=== PATIENT | male | born 1955 | race Caucasian/White ===

== ENCOUNTER 2019-02-23 11:53 | Outpatient (CLI) | payer OTHER ==
[~2019-02-23] VITALS: Ht 180.3 cm; Wt 97.7 kg
--- NOTE | ~2019-02-23 | HEMODYNAMI ---
PATIENT:EMMA RITCHIE MEDICAL RECORD: [id number] : 51 LOCATION:[facility] ADMISSION DATE: 02/23/19 Generatedon:02/23/201915:12 Patient name: EMMA RITCHIE Patient #: [id number] SSN: DO B: 1955 Date of study: 02/23/2019 Page: Of Hemodynamic Procedure Report Patient Data Patient Demographics Procedure consent was obtained First Name: EMMA Gender: Male Last Name: ERMA : 1955 Patient #: [id number] Age: 63 year(s) Race: Unknown Additional ID: [id number] Contact details Address: [address] [place] [address] State: [place] City: [place] Zip code: [address] Past Medical History Allergies: No known allergies Admission Admission Data Admission Date: 02/23/2019 Admission Time: 11:53 Arrival Date: 02/23/2019 Arrival Time: 0:00 Admit Source: Emergency department Room #: 10 Height (in.): 70.87 BSA: 2.17 (m2) Height (cm.): 180 BMI: 29.94 (kg/m2) Weight (lbs.): 213.85 Weight (kg.): 97 Lab Results Lab Result Date: 02/23/2019 Lab Result Time: 0:00 Biochemistry Name Units Result Min Max BUN mg/dl 6 -*(----)-- 7 18 Creatinine mg/dl 0.8 --(-*--)-- 0.6 1.3 eGFR ml/min 90 --(*---)-- 90 120 NONAFRICAN CBC Name Units Result Min Max Hemoglobin g/dl 12.2 *-(----)-- 13.5 17.5 Procedure Procedure Types Cath Procedure Diagnostic Procedure LHC LHC w/Coronaries PCI Procedure Coronary Stent Coronary Stent Initial Procedure Description Procedure Date Procedure Date: 02/23/2019 Procedure Start Time: 14:51 Procedure End Time: 15:03 Procedure Staff Name Function Rosey CHUNG Scrub Nola Aguilar RN Nurse Darryl Jasmine MD Performing Physician Deborah Tadeo RT Monitor María Ugarte RN Nurse Procedure Data Cath Procedure Fluoroscopy Diagnostic fluoroscopy Total fluoroscopy Time: 2 time: 2 min min Diagnostic fluoroscopy Total fluoroscopy dose: 445 dose: 445 mGy mGy Contrast Material Contrast Material Type Amount (ml) Isovue 300 61 Entry Location Entry Primary Successful Side Size Upsize Upsize Entry Closure Succes sful Closure Location (Fr) 1 (Fr) 2 (Fr) Remarks Device Remarks Femoral Right 5 Fr 6 Fr artery Short Estimated blood loss: 5 ml Diagnostic catheters Device Type Used For End Catheter Placement MULTIPACK Pigtail 5 Fr Procedure catheter MULTIPACK JL 4.0 5Fr Procedure catheter MULTIPACK 3DRC 5Fr Procedure catheter Procedure Complications No complications Procedure Medications Medication Administration Route Dosage 0.9% NaCl I.V. 100 ml/hr Oxygen etCO2 Nasal cannula 2 l/min Lidocaine 2% added to field 20 Heparin Flush Bag added to field 2 bags (1000units/500ml NS) Versed I.V. 2 mg Fentanyl I.V. 100 mcg Heparin Bolus I.V. 4000 units Integrilin (Bolus I.V. 9 ml 2mg/ml) Versed I.V. 1 mg Fentanyl I.V. 50 mcg Hemodynamics Rest HGB: 12.2 (g/dl) Heart Rate: 60 (bpm) Snapshots Pre Cath Intra NCS Post Cath Vital Signs Time Heart Resp SPO2 etCO2 NIBP (mmHg) Rhythm Pain Sedation Rate (ipm) (%) (mmHg) Status Level (bpm) 14:38:56 58 17 100 29.2 156/80(104) NSR 0 (11) 10(A) , No pain 14:43:19 57 25 100 27.7 135/79(105) NSR 0 (11) 10(A) , No pain 14:47:18 79 37 100 26.2 113/91(111) NSR 0 (11) 10(A) , No pain 14:53:19 57 23 100 27 155/86(107) NSR 0 (11) 10(A) , No pain 14:58:28 59 17 99 27 132/73(97) NSR 0 (11) 9(A) , No pain 15:03:31 59 13 99 26.2 122/68(99) NSR 0 (11) 10(A) , No pain Medications Time Medication Route Dose Verified Delivered Reason Notes Effectiveness by by 14:37:14 0.9% NaCl I.V. 100 Darryl María used for ml/hr Kenroy Ugarte transportation consultant 14:37:21 Oxygen etCO2 2 Darryl Beltranyla used for Nasal l/min Kenroy Ugarte procedure cannula RN 14:37:26 Lidocaine 2% added 20ml Darryl Andrews for local to vial Kenroy Jasmine MD anesthetic field 14:37:30 Heparin Flush added 2 Darryl Darryl used for Bag to bags Kenroy Jasmine MD procedure (1000units/500ml field NS) 14:51:37 Versed I.V. 2 mg Darryl Vaca for sedation Kenroy Aguilar RN 14:51:42 Fentanyl I.V. 100 Darryl Vaca for sedation mcg Kenroy Aguilar RN 14:54:15 Versed I.V. 1 mg Darryl Vaca for sedation Kenroy Aguilar RN 14:54:19 Fentanyl I.V. 50 Darryl Vaca for sedation mcg Kenroy Aguilar RN 14:55:10 Heparin Bolus I.V. 4000 Darryl Vaca for verif ied units Kenroy Aguilar RN anticoagulation with dr jasmine 14:56:55 Integrilin I.V. 9 ml Darryl Vaca for waste d 1 (Bolus 2mg/ml) Kenroy Aguilar RN antiplatelet ml of therapy vial Procedure Log Time Note 14:11:50 Informed consent obtained and on chart 14:13:08 Admit Source: Emergency department 14:13:15 Arrival Date: 02/23/2019 12:00:00 AM 14:13:36 Patient Height : 70.87 inches 14:13:40 Patient Weight : 213.85 lbs 14:14:47 Lab Result : eGFR NONAFRICAN 90 ml/min 14:14:47 Lab Result : Hemoglobin 12.2 g/dl 14:14:47 Lab Result : BUN 6 mg/dl 14:14:47 Lab Result : Creatinine 0.8 mg/dl 14:15:34 Procedure Status Urgent Heart Cath (IP). 14:15:39 Nola Aguilar RN sent for patient. Start room use. 14:15:41 Time tracking: Regular hours (M-F 7:00 - 5:00) 14:15:46 Plan of Care:Hemodynamics will remain stable., Cardiac rhythm will remain stable., Comfort level will be maintained., Respiratory function will remain adequate., Patient/ family verbilizes understanding of procedure., Procedure tolerated without complication., Recovers from procedure without complications.. 14:15:51 Patient received from ED to CCL 2 Alert and oriented. Tansferred to table in Supine position. 14:16:05 H&P Date Dictated: 02/23/2019 Emergent; H&P N/A. 14:16:07 Pre-procedure instructions explained to patient. 14:16:10 Family in patients room. 14:16:13 Patient NPO since Midnight. 14:20:44 Patient allergic to No known allergies 14:20:47 Is the patient allergic to Iodine/contrast media? No. 14:21:00 Was the patient premedicated? Yes 14:25:29 Patient diabetic? No. 14:25:31 If diabetic: On Metformin? No 14:25:53 Previous problem with sedation/anesthesia? No ? 14:29:59 Snore? Yes 14:30:00 Sleep apnea? No 14:30:26 Dentures? No ? 14:30:32 Patient pain scale 0/10 ?. 14:30:45 IV patent on arrival in right hand with 0.9% NaCl at [facility]. 14:30:50 Lab results completed and on chart. 14:31:43 Is patient on blood thinner?Yes 14:31:47 ACC The patient was administered the following blood thiners within the last 24 hours: ACCAspirin, ACCPlavix 14:37:14 0.9% NaCl 100 ml/hr I.V. was administered by María Ugarte RN; used for procedure; Verbal order read back and verified. 14:37:21 Oxygen 2 l/min etCO2 Nasal cannula was administered by María Ugarte RN; used for procedure; Verbal order read back and verified. 14:37:22 Pre procedure: right dorsailis pedis pulse 1+ Palpable, but thready & weak; easily obliterated 14:37:26 Lidocaine 2% 20ml vial added to field was administered by Darryl Jasmine MD; for local anesthetic; Verbal order read back and verified. 14:37:30 Heparin Flush Bag (1000units/500ml NS) 2 bags added to field was administered by Darryl Jasmine MD; used for procedure; Verbal order read back and verified. 14:37:32 Risk of Mortality: 2.1 14:37:37 Risk of blood transfusion: 3.6 14:37:38 Vital chart was started 14:37:42 Risk of YAAKOV: 2.2 14:37:46 Right groin area was prepped with chlora-prep and draped in sterile fashion 14:37:47 Sharps counted by scrub and verified by R.N. 14:37:47 Alarms reviewed by R. N. 14:37:50 Physician paged 14:37:54 Baseline sample Acquired. 14:37:57 Rhythm: sinus rhythm 14:37:59 Full Disclosure recording started 14:38:10 Use device set Femoral Dx 14:38:12 Bag Decanter (2002S) opened to sterile field. 14:38:12 ACIST Syringe (98019) opened to sterile field. 14:38:13 Medline Cath Pack ([id number]) opened to sterile field. 14:38:14 ACIST Manifold (39722) opened to sterile field. 14:38:14 ACIST Hand Control (87937) opened to sterile field. 14:38:15 Tegaderm 4 x 4 (1626W) opened to sterile field. 14:38:15 DIAGNOSTIC Multipack 5Fr catheter set (BI5728) opened to sterile field. 14:38:20 SHEATH 5FR [place] (JBK233) opened to sterile field. 14:38:21 EMERALD Guide Wire (442-948) opened to sterile field. 14:50:03 --------ALL STOP TIME OUT------ 14:50:03 Physician arrived 14:50:04 Final Timeout: patient, procedure, and site verified with staff and physician. All members of the team are in agreement. 14:50:11 Right groin site verified by team. 14:50:15 Fire Safety Assessment: A--An alcohol-based skin anteseptic being used preoperatively., C--Open oxygen or nitrous oxide is being used., D--An ESU, laser, or fiber-optic light is being used. 14:50:19 Physical assessment completed. ASA score P 2 - A patient with mild systemic disease as per Darryl Jasmine MD. 14:50:44 1) 90+ Normal kidney functon but urine findings or structural abnormalities or genetic trait point to kidney disease. 14:50:48 Maximum allowable contrast dose (3.7 X eGFR X 0.75)249 ml. 14:50:52 Sedation plan: IV Moderate Sedation Medication:Versed, Fentanyl 14:50:57 Procedure started. 14:51:20 Local anesthetic to right femoral artery with Lidocaine 2% by Darryl Jasmine MD.INITIAL ACCESS ONLY 14:51:29 A 5 Fr sheath was inserted into the Right Femoral artery 14:51:37 Versed 2 mg I.V. was administered by Nola Aguilar RN; for sedation; Verbal order read back and verified. 14:51:42 Fentanyl 100 mcg I.V. was administered by Nola Aguilar RN; for sedation; Verbal order read back and verified. 14:52:14 A MULTIPACK Pigtail 5 Fr catheter was advanced over the wire and used for Procedure. 14:52:18 LV angiography performed. 14:53:19 EF : 40 % 14:53:26 Catheter removed. 14:53:34 A MULTIPACK JL 4.0 5Fr catheter was advanced over the wire and used for Procedure. 14:54:15 Versed 1 mg I.V. was administered by Nola Aguilar RN; for sedation; Verbal order read back and verified. 14:54:15 LCA angiography performed. 14:54:19 Fentanyl 50 mcg I.V. was administered by Nola Aguilar RN; for sedation; Verbal order read back and verified. 14:54:48 GUIDE 6FR XBLAD 3.5 catheter ([id number]) opened to sterile field. 14:54:50 INFLATOR Merit BasixCompak (IX3747) opened to sterile field. 14:55:00 SHEATH 6FR [place] (WPX083) opened to sterile field. 14:55:10 Heparin Bolus 4000 units I.V. was administered by Nola Aguilar RN; for anticoagulation; verified with dr jasmine Verbal order read back and verified. 14:55:12 Catheter removed. 14:55:22 A MULTIPACK 3DRC 5Fr catheter was advanced over the wire and used for Procedure. 14:55:26 RCA angiography performed. 14:55:30 Catheter removed. 14:55:50 CHOICE PT Extra Support 182cm wire ([id number]) opened to sterile field. 14:56:19 Proceeding to intervention. 14:56:27 Sheath upsized to a 6 Fr Short. 14:56:38 6 Fr XBLAD3.5 guide catheter was inserted over the wire 14:56:44 choice pt ex wire advanced. 14:56:55 Integrilin (Bolus 2mg/ml) 9 ml I.V. was administered by Nola Aguilar RN; for antiplatelet therapy; wasted 1 ml of vial Verbal order read back and verified. 14:57:04 Pre PCI Site: [place] mLAD has 95% stenosis. 14:58:24 Place stent Inflation Number: 1 A DOMINICK RX 3.5 x 12 stent ([id number]) was prepped and advanced across the Mid LAD 95. The stent was deployed at 15 CESAR for 0:18 (min:sec) 0. 15:00:01 EXOSEAL 6Fr (EX600) opened to sterile field. 15:00:15 Use device set Femoral Dx 15:00:37 Wire removed. 15:00:38 Guide catheter removed. 15:00:44 ACT drawn and resulted at 293 seconds. (normal therapeutic range 180-240 seconds). 15:00:47 Procedure ended.(Physican Out) 15:00:57 Fluoroscopy time 02.00 minutes. 15:01:02 Fluoroscopy dose: 445 mGy 15:01:02 Flurop Dose total: 445 15:01:09 Dose Area Product 64110 mGy/cm. 15:01:13 Contrast amount:Isovue 300 61ml. 15:01:16 Maximum allowable dose exceeded? No. 15:01:17 Sharps counted by scrub and verified by R.N. 15:01:19 Insertion/operative site no bleeding no hematoma. 15:01:28 Post procedure rhythm: unchanged. 15:01:31 Estimated blood loss: 5 ml 15:01:33 Post procedure instruction explained to patient.Patient verbalizes understanding. 15:01:50 Procedure type changed to Cath procedure, Diagnostic procedure, LHC, C w/Coronaries, PCI procedure, Coronary Stent, Coronary Stent Initial 15:01:52 Procedure and supply charges have been captured, reviewed, submitted and are correct. 15:02:28 Procedure Complication : No complications 15:02:31 Vital chart was stopped 15:02:37 [facility] Findings: MVD- PCI performed (see procedure note) 15::44 See physician's report for complete and final results. 15:02:53 Report given to PCU. 15:02:58 Patient transfered to PCU with Bed. 15:03:00 Full Disclosure recording stopped 15:03:00 Procedure ended. 15:03:06 End room use (Document Last) 15:11:14 ACC-PCI Only Patient was given prescriptions, or instructed by Darryl Jasmine MD to start/continue the following medications upon discharge: Plavix Intervention Summary Intervention Notes Time ActionType Lesion and Equipment Used Action# Pressure Duration Attributes 14:58:24 Place stent Mid LAD DOMINICK RX 3.5 x 1 15 00:18 12 stent ([id number]) Device Usage Item Name Manufacture Quantity Catalog Number Hospital Part Current M inimal Lot# / Charge Number Stock Stock Serial# Code ACIST Syringe Acist 1 62202 370453 998533 676159 2 0 (95806) Medical Systems Inc Bag Decanter Microtek 1 2001S 786975 54755 628985 5 (2001S) Medical Inc. Medline Cath Medline 1 [id number] 911735 62518 622484 5 Pack ([id number]) ACIST Hand Acist 1 40703 416317 336585 869502 5 Control Medical (36653) Systems Inc ACIST Manifold Acist 1 74178 407393 787505 109536 5 (47810) Medical Systems Inc DIAGNOSTIC Cardinal 1 ER3152 988133 59349 175452 3 0 Multipack 5Fr Health catheter set (OQ6401) Tegaderm 4 x 4 3M 1 1626W 891447 020122 644197 5 (1626W) SHEATH 5FR Terumo 1 IXP208 785206 591670 527818 5 [place] (KAB819) EMERALD Guide Cardinal 1 502-455 914383 876466 251890 5 Wire (502-455) Health MULTIPACK Cardinal 1 721903 5 Pigtail 5 Fr Health catheter MULTIPACK JL Cardinal 1 362586 5 4.0 5Fr Health catheter GUIDE 6FR Cardinal 1 [id number] 756620 250454 230973 1 0 XBLAD 3.5 Health catheter ([id number]) INFLATOR Merit Merit 1 KC1209 669369 503760 036959 1 5 [place] (HE3959) SHEATH 6FR Terumo 1 CPE874 349122 611249 181621 4 0 [place] (AVI988) MULTIPACK 3DRC Cardinal 1 033210 5 5Fr catheter Health CHOICE PT [employer] 1 [id number] 573115 440116 305570 5 Extra Support Scientific 182cm wire ([id number]) DOMINICK RX 3.5 x Medtronic 1 [id number] 640455 9731909 057214 5 [id number] 12 stent ([id number]) EXOSEAL 6Fr Cardinal 1 EX600 484560 402043 543543 1 0 (EX600) Health Signature Audit [place] Stage Time Signature Unsigned Intra-Procedure 02/23/2019 Deborah Tadeo 3:03:33 PM RT(R) Intra-Procedure 02/23/2019 Nola Aguilar RN 3:04:24 PM Intra-Procedure 02/23/2019 Darryl Jasmine MD 3:06:15 PM 02/23/2019 3:11:01 PM Intra-Procedure 02/23/2019 Darryl Jasmine 3:12:02 PM Signatures Nurse : Nola Aguilar RN Signature : Date : Time : Performing Physician : Signature : Darryl Jasmine MD Date : Time : Monitor : Deborah Tadeo Signature : RT Date : Time : Nurse : María Ugarte RN Signature : Date : Time : [address] [place] [address]
[2019-02-23] MEDS ORDERED: LISINOPRIL5 MG PO (12:05)
[2019-02-23] MEDS ORDERED: BUPROPION HCL75 MG PO (12:06)
[2019-02-23] MEDS ORDERED: LISINOPRIL-HCT1 EAC4 PO (12:14)
[2019-02-23] MEDS ORDERED: VOLTAREN75 MG PO (12:14)
[2019-02-23 12:39] LABS: BASOPHILS 0.4 % (0-2); EOSINOPHILS 4.5 % (0-7); HEMATOCRIT 34.3 % (42.0-54.0); HEMOGLOBIN 12.2 g/dL (13.5-17.5); LYMPHOCYTES 34.4 % (15-50); MCH 32.3 pg (26.0-34.0); MCHC 35.6 g/dL (31.0-37.0); MCV 90.7 fL (80.0-100.0); MEAN PLATELET VOLUME 10.8 fL (7.4-10.4); MONOCYTES 13.7 % (2-11); PLATELET COUNT 195 10x3/uL (130-400); RBC 3.78 10x6/uL (4.20-6.10); RDW 12.1 % (11.5-14.5); WBC 4.5 10x3/uL (4.8-10.8)
[2019-02-23 12:51] LABS: INR 1.06 (0.85-1.17); PROTIME 13.3 SECONDS (11.6-15.0)
[2019-02-23 12:53] LABS: ALBUMIN 3.4 g/dL (3.4-5.0); ALKALINE PHOSPHATASE 56 U/L (46-116); ALT (SGPT) 15 U/L (10-68); BILIRUBIN - TOTAL 0.54 mg/dL (0.2-1.3); CALC OSMOLALITY 254 mosm/kg (275-300); CALCIUM 8.2 mg/dL (8.5-10.1); CARBON DIOXIDE 28.6 mmol/L (21.0-32.0); CHLORIDE - SERUM 93 mmol/L (98-107); CREATININE - SERUM 0.8 mg/dL (0.6-1.3); GLUCOSE 97 mg/dL (74-106); PROTEIN - SERUM 6.5 g/dL (6.4-8.2); SODIUM 128 mmol/L (136-145); UREA NITROGEN 6 mg/dL (7-18); eGFR NON AFRICAN AMERICAN > 90 mL/min (90-120)
[2019-02-23 13:11] LABS: CKMB 2.7 U/L (0.0-3.6); CREATINE KINASE 144 UL (21-232); MAGNESIUM - SERUM 1.6 mg/dL (1.8-2.4)
[2019-02-23 13:12] LABS: TROPONIN-I 0.269 ng/mL (0.000-0.060)
[2019-02-23 17:00] VITALS: BP 135/68; Ht 180.3 cm; Wt 97.7 kg
--- NOTE | 2019-02-23 17:50 | NUR ---
WITHOUT CHANGES OR DISTRESS NOTED AT THIS TIME. FAMILY AT SIDE.
[2019-02-23 18:20] VITALS: BP 135/68
--- NOTE | 2019-02-23 19:32 | NUR ---
ASSESSMENT COMPLETE, PT A&O. RESPERATIONS EVEN AND UNLABORED ON RA. IV TO RIGHT FOREARM SL, SITE CLEAN AND DRY. DRSG TO RIGHT GROIN C/D/I. NO SWELLING, BLEEDING, OR HEMATOMA NOTED. PEDAL PULSES PRESENT. PT DENIES PAIN OR NEEDS, BED LOW, CL IN REACH.
[2019-02-23 19:47] LABS: CKMB 2.2 U/L (0.0-3.6); CREATINE KINASE 117 UL (21-232)
[2019-02-23 19:49] LABS: TROPONIN-I 0.576 ng/mL (0.000-0.060)
[2019-02-23 20:00] VITALS: BP 121/65
[2019-02-24] VITALS: BP 117/67
[2019-02-24 01:41] LABS: CKMB 2.1 U/L (0.0-3.6); CREATINE KINASE 101 UL (21-232)
[2019-02-24 03:50] LABS: BASOPHILS 0.2 % (0-2); EOSINOPHILS 3.2 % (0-7); HEMATOCRIT 34.2 % (42.0-54.0); LYMPHOCYTES 36.4 % (15-50); MCH 32.1 pg (26.0-34.0); MCHC 35.1 g/dL (31.0-37.0); MCV 91.4 fL (80.0-100.0); MEAN PLATELET VOLUME 11.5 fL (7.4-10.4); MONOCYTES 13.7 % (2-11); NEUTROPHILS 46.5 % (40-80); PLATELET COUNT 215 10x3/uL (130-400); RBC 3.74 10x6/uL (4.20-6.10); RDW 12.3 % (11.5-14.5)
[2019-02-24 04:00] VITALS: BP 103/64
[2019-02-24 04:20] LABS: ALBUMIN 3.3 g/dL (3.4-5.0); ALKALINE PHOSPHATASE 52 U/L (46-116); ALT (SGPT) 14 U/L (10-68); BILIRUBIN - TOTAL 0.49 mg/dL (0.2-1.3); CALC OSMOLALITY 270 mosm/kg (275-300); CALCIUM 8.3 mg/dL (8.5-10.1); CARBON DIOXIDE 27.7 mmol/L (21.0-32.0); CHLORIDE - SERUM 100 mmol/L (98-107); CREATININE - SERUM 0.8 mg/dL (0.6-1.3); GLUCOSE 124 mg/dL (74-106); POTASSIUM - SERUM 3.8 mmol/L (3.5-5.1); PROTEIN - SERUM 6.2 g/dL (6.4-8.2); SODIUM 136 mmol/L (136-145); UREA NITROGEN 7 mg/dL (7-18); eGFR NON AFRICAN AMERICAN > 90 mL/min (90-120)
--- NOTE | 2019-02-24 07:46 | NUR ---
ASSESSMENT DONE. DENIES NEEDS
[2019-02-24 08:58] VITALS: BP 147/84
--- NOTE | 2019-02-24 09:50 | NUR ---
I have reviewed this patient and I concur with the Shift Assessment completed by the Licensed Practical Nurse today this shift.
--- NOTE | 2019-02-24 10:28 | CN ---
PATIENT NAME:EMMA MCMAHAN MEDICAL RECORD: [id number] : 51 LOCATION:[address] ADMIT DATE: ACCOUNT: [id number] CONSULTING PHYSICIAN: ELIZABET MCCAULEY MD REFERRING PHYSICIAN: ELIZABET MCCAULEY MD DATE OF CONSULTATION: 02/23/2019 ADMITTING DIAGNOSES: 1. Unstable angina, class IV. 2. Abnormal ECG. 3. Hypertension. 4. Hyperlipidemia. 5. Family history of coronary artery disease. 6. Smoking. HISTORY OF PRESENT ILLNESS: Mr. Mcmahan has been having 3 days of increasing episodes of chest discomfort. It is a typical anginal discomfort with a dull aching, heavy sensation on the anterior chest, some radiation to his left arm. It has worsened dramatically. He has had episodes at rest today. Hence, he presents to the Emergency Room. He has T-wave inversions throughout the anterolateral on EKG. He has continued to have the episodes of chest discomfort despite medical management here in the Emergency Room. At home, he is on lisinopril, aspirin. He is a continued smoker. PHYSICAL EXAMINATION: CONSTITUTIONAL/GENERAL APPEARANCE: Well nourished, well developed, appears stated age. EYES: Lids and conjunctivae noninjected. No discharge. No pallor. ENT: Lips within normal limit. No cyanosis. No pallor. NECK: Carotid arteries, bilateral normal upstroke. No bruits. No thrills. No jugular venous pressure or distention. CERVICAL LYMPH NODES: Nontender. Nonenlarged. THYROID: Not enlarged. No nodules. CARDIOVASCULAR: Precordial exam, nondisplaced. No heaves or pericardial thrills. Rate and rhythm, regular. Heart sounds, normal S1, normal S2. No S3, no gallop, no rub. Systolic murmur, not heard. Diastolic murmur, not heard. RESPIRATORY: Respiratory effort, unlabored. Normal curvature. No thoracic deformity. No chest wall tenderness. Percussion, resonant. Auscultation, clear. No wheezes, no rales, no rhonchi. ABDOMEN: Soft, nondistended, nontender. No abdominal pain, no vomiting and normal appetite. MUSCULOSKELETAL: No joint tenderness, normal gait, normal tone. SKIN: Warm and dry. REVIEW OF SYSTEMS: The patient reports easy bruising but reports no swollen glands. The patient reports no fever, no night sweats, no significant weight gain, no significant weight loss. No significant exercise tolerance. The patient reports no dry eyes, no irritation, no vision change. Patient reports no difficulty hearing and no ear pain. Patient reports no frequent nose bleeds or nose and sinus problems. Patient reports on arm pain on exertion. No shortness of breath while lying down. No history of heart murmur. Patient reports no cough, no wheezing or coughing up blood. Patient reports no abdominal pain, no vomiting. Normal appetite. No diarrhea and not vomiting blood. No nausea and no constipation. Patient reports no incontinence. No difficulty urinating. No hematuria. No increased frequency. Patient reports CONSULT REPORT [id number] EMMA MCMAHAN no muscle aches. No weakness, no arthralgias, no back pain. No swelling of the extremities. Patient reports no abnormal mole, no jaundice, no rashes. Reports no loss of consciousness. No weakness and no numbness. No seizures, dizziness, or headaches. The patient reports no depression, no sleep disturbance, feeling safe in a relationship and no alcohol abuse. Patient reports on fatigue. Reports no runny nose or sinus pressure. No itching, no hives, and no frequent sneezing. FAMILY HISTORY: Positive for premature coronary artery disease on his father's side. SOCIAL HISTORY: Lives in the [place] area. He is retired. He continues to smoke. OVERALL IMPRESSION: Unstable angina with abnormal ECG, continued pain episodes of rest pain despite aspirin therapy as well as blood pressure controlled with lisinopril. He does not need beta blockade as his heart rate is in the 50s. If he continues to have the pain, we will proceed with coronary angiography. Further care depends upon findings of the angiography. TRANSINT:[id number] Voice Confirmation ID: [id number] DOCUMENT ID: [id number] ELIZABET MCCAULEY MD at 1028 CC: [id number] DICTATION DATE: 02/23/19 1252 PUT IN BEAT ADJUSTER: 02/23/19 1301 [facility] [address] [place] [id number]
--- NOTE | 2019-02-24 10:33 | NUR ---
UPON ADMIT, BEULAH HAS NOT HAD A FLU SHOT THIS YEAR. ORDERED.
[2019-02-24] MEDS ORDERED: PRAVASTATIN SOD10 MG PO (11:15)
[2019-02-24] MEDS ORDERED: PLAVIX75 MG PO (11:16)
[2019-02-24] MEDS ORDERED: BAYER CHEWABLE81 MG PO (11:16)
--- NOTE | 2019-02-24 12:03 | NUR ---
DC GIVEN TO PT
--- NOTE | 2019-02-24 12:11 | NUR ---
DC HOME PER PERSONAL CAR
--- NOTE | 2019-02-24 13:29 | OP ---
PATIENT NAME: EMMA RITCHIE MEDICAL RECORD: [id number] :51 LOCATION:D.ER ADMISSION DATE: SURGEON: ELIZABET MCCAULEY MD DATE OF OPERATION: 02/23/2019 PROCEDURES: 1. PTCA stent LAD. 2. Left heart catheterization. 3. Selective coronary angiography. 4. Left ventriculogram. INDICATION: Non-Q-wave myocardial infarction. DESCRIPTION OF PROCEDURE: After informed consent was obtained and after a detailed description of risks, benefits as well as alternative therapies, the patient elected to proceed with angiogram and heart catheterization. The right femoral area was prepped and draped in normal sterile fashion. Right femoral artery was cannulated via modified Seldinger technique with placement of 6-Bulgarian sheath. All catheters exchanged through this sheath. FINDINGS: The left ventriculogram was performed in standard 30-degree MARKHAM view, reveals anteroapical hypokinesis. Overall ejection fraction 40%. SELECTIVE CORONARY ANGIOGRAPHY: 1. Left main showed no significant angiographic disease. 2. Left anterior descending has 95% stenosis in the mid vessel. 3. Left circumflex has mild irregularities, no flow-limiting stenosis. 4. Right coronary has moderate irregularities, but no flow-limiting stenosis. PTCA STENT OF THE LAD: The sent used is a 3.5 x 12 mm Ronaldo. Result was 0% residual stenosis. OVERALL IMPRESSION: Successful percutaneous transluminal angioplasty stent of the left anterior descending going from 95% initial stenosis to 0% residual. TRANSINT:[id number] Voice Confirmation ID: [id number] DOCUMENT ID: [id number] ELIZABET MCCAULEY MD at 1329 CC: [id number] DICTATION DATE: 02/23/19 1509 STORAGE BRINE WORKER: 02/23/19 2239 DEP CLI 02/24/19 [place] [id number]
--- NOTE | 2019-03-07 11:40 | EC ---
PATIENT:BRIA RITCHIE DATE OF SERVICE: 02/23/19 SEX: M MEDICAL RECORD: [id number] DATE OF : 51 LOCATION:D.ER AGE OF PATIENT: 63 ADMISSION DATE: 02/23/19 REFERRING PHYSICIAN: INTERPRETING PHYSICIAN: ELIZABET JASMINE MD ECHOCARDIOGRAM REPORT ECHO CHARGES 4 ECHO COMPLETE Date: 02/24/19 CLINICAL DIAGNOSIS: GA ECHOCARDIOGRAPHIC MEASUREMENTS (adult normal given) AC root (d.<3.7cm) 4.5 cm LV Septum d (<1.2 cm> 1.1 cm Valve Excursion 1.9 cm LV Septum (systole) 1.6 cm Left Atria (s.<4.0cm> 3.7 cm LVPW d(<1.2cm) 1.4 cm RV (d.<2.3cm) 4.3 cm LVPW (sytole) 1.7 cm LV diastole(<5.6CM) 5.9 cm MV E-F(>70mm/sec) cm LV systole 4.6 cm LVOT Diameter 2.3 cm MV exc.(>10mm) 1.6 cm Est.ejection fraction (50-75%) % DOPPLER: LVIT cm/sec A 70.0 cm/sec E 34.0 cm/sec LA cm/sec RVSP 19 mmHg LVOT 97 cm/sec AOP1/2T m/s Asc. Ao 123 cm/sec RVOT 73 cm/sec RA cm/sec PA 119 cm/sec AV Gradient Peak 6.07 mmHg AV Mean 2.93 mmHg AV Area 2.7 cm MV Gradient Peak 3.36 mmHg MV Mean 1.11 mmHg MV Area cm COMMENTS: Customer Loyalty Representative: Melva LUTHER Area Safety Manager: 1 Dr. Jasmine TAPE# PACS Pericardial Effusion N DATE OF SERVICE: PROCEDURE: Echocardiogram. FINDINGS: 1. Left ventricular chamber size is mildly dilated. Left ventricular systolic function is preserved at 55%. 2. Left atraumatic, right atrium, and right ventricular chamber sizes are within normal limits. 3. Valvular structures have normal structure and motion. ECHOCARDIOGRAM REPORT [id number] BRIA RITCHIE 4. Doppler interrogation reveals mild mitral regurgitation, mild tricuspid regurgitation, no other valvular insufficiency or stenosis. 5. No evidence of pericardial effusion or left ventricular thrombus. TRANSINT:[id number] Voice Confirmation ID: [id number] DOCUMENT ID: [id number] ELIZABET JASMINE MD at 1140 CC: [id number] DICTATION DATE: 02/24/19 1355 SOFTWARE QA SYSTEM SPECIALIST: 02/24/19 1417 DEP CLI 02/24/19 [place] [id number] [place] [id number]
--- NOTE | 2019-03-07 11:40 | DS ---
PATIENT:BRIA MCMAHAN :51 MEDICAL RECORD: [id number] DISCHARGE SUMMARY ADMISSION DATE: 02/23/19 DISCHARGE DATE: 02/24/19 DISCHARGE DIAGNOSES: 1. Non-Q-wave myocardial infarction. 2. Coronary artery disease. 3. Percutaneous transluminal coronary angioplasty stent left anterior descending. 4. Hyperlipidemia. Mr. Mcmahan presents with anginal symptomatology, found to have single vessel disease of the LAD, underwent successful PTCA stent of the LAD, was discharged home on aspirin, Plavix, Pravachol, and no beta charlette was added secondary to bradycardia. He will follow up with [facility] in 1 month. TRANSINT:[id number] Voice Confirmation ID: [id number] DOCUMENT ID: [id number] ELIZABET MCCAULEY MD at 1140 CC: [id number] DICTATION DATE: 02/24/19 1029 EDITOR CONTINUITY AND SCRIPT: 02/25/19 0208 DEP CLI 02/24/19 [id number] [place] [address]
== END 2019-02-24 12:12 | disposition home or self-care (01) ==
LOC: D.ER 11:53 → D.M2 11:53 → EDSTATUS 13:18 → D.M2 16:41 → D.ER 02-24 12:12
PROVIDERS: Family Medicine; ATTEND Internal Medicine Interventional Cardiology
DX: I21.4 Non-ST elevation (NSTEMI) myocardial infarction (principal); I10 Essential (primary) hypertension; I25.10 Atherosclerotic heart disease of native coronary artery without angina pectoris; E78.5 Hyperlipidemia, unspecified
CPT/HCPCS: 93458; C9600

== ENCOUNTER → 2019-10-04 16:50 | Outpatient (CLI) | payer OTHER ==
[~2019-10-04 16:50] MED LIST: BAYER CHEWABLE81 MG PO; BUPROPION HCL75 MG PO; LISINOPRIL-HCT1 EAC4 PO; LISINOPRIL5 MG PO; PLAVIX75 MG PO; PRAVASTATIN SOD10 MG PO; VOLTAREN75 MG PO
== END | disposition home or self-care (01) ==
LOC: D.LABREF 16:50
PROVIDERS: ATTEND Orthopaedic Surgery
DX: M17.12 Unilateral primary osteoarthritis, left knee (principal)

== ENCOUNTER → 2019-10-04 20:23 | Outpatient (CLI) | payer MEDICARE | END | disposition home or self-care (01) | LOC: D.LABREF 20:23 | PROVIDERS: ATTEND Orthopaedic Surgery | DX: M17.12 Unilateral primary osteoarthritis, left knee (principal) ==

== ENCOUNTER 2019-11-14 05:57 | Outpatient (CLI) | payer OTHER ==
[2019-11-08 11:11] LABS: BASOPHILS 0.8 % (0-2); EOSINOPHILS 3.2 % (0-7); HEMATOCRIT 39.9 % (42.0-54.0); HEMOGLOBIN 13.9 g/dL (13.5-17.5); IMMATURE GRANULOCYTES 0.2 % (0-5); LYMPHOCYTES 34.4 % (15-50); MCH 32.3 pg (26.0-34.0); MCHC 34.8 g/dL (31.0-37.0); MCV 92.8 fL (80.0-100.0); MEAN PLATELET VOLUME 10.2 fL (7.4-10.4); MONOCYTES 10.8 % (2-11); NEUTROPHILS 50.6 % (40-80); RDW 12.2 % (11.5-14.5); WBC 5.3 10x3/uL (4.8-10.8)
[2019-11-08 11:20] LABS: CALC OSMOLALITY 262 mosm/kg (275-300); CHLORIDE - SERUM 98 mmol/L (98-107); CREATININE - SERUM 0.8 mg/dL (0.6-1.3); GLUCOSE 94 mg/dL (74-106); POTASSIUM - SERUM 4.4 mmol/L (3.5-5.1); SODIUM 132 mmol/L (136-145); UREA NITROGEN 7 mg/dL (7-18); eGFR NON AFRICAN AMERICAN > 90 mL/min (90-120)
[2019-11-08 11:37] LABS: APTT 31.5 SECONDS (22.8-39.4); INR 0.96 (0.85-1.17); PROTIME 12.8 SECONDS (11.6-15.0)
[2019-11-08 11:50] LABS: PLATELET COUNT 62 10x3/uL (130-400)
[2019-11-08 12:15] LABS: BACTERIA FEW /hpf (NEGATIVE); BILIRUBIN NEGATIVE (NEGATIVE); EPITHELIAL CELLS 0-5 /hpf (0-5); GLUCOSE NEGATIVE (NEGATIVE); KETONE NEGATIVE (NEGATIVE); NITRITE NEGATIVE (NEGATIVE); RED CELLS - URINE NONE SEEN /hpf (0-5); UROBILINOGEN NORMAL (NORMAL); WHITE CELLS - URINE OCC /hpf (NEGATIVE)
[2019-11-08 12:17] LABS: PLATELET ESTIMATE DECREASED
[2019-11-08 12:18] LABS: ROULEAUX OCC
[~2019-11-14] VITALS: Ht 180.3 cm; Wt 97.5 kg
[2019-11-14] MEDS ORDERED: VOLTAREN100 GM TOPICAL (06:18)
[2019-11-14 06:20] VITALS: BP 131/64; Ht 180.3 cm; Wt 97.5 kg
--- NOTE | 2019-11-14 07:30 | NUR ---
PROCEDURE CANCELLED DUE TO LOW PLATELETS PER DR GARCIA. DR GARCIA AT BEDSIDE INFORMING PT OF CANCELLED PROCEDURE.
--- NOTE | 2019-11-14 07:40 | NUR ---
PT DC INSTRUCTIONS REVIEWED AT THIS TIME, PT VERBALIZES UNDERSTANDING. PT IV REMOVED AT THIS TIME, INTACT, NO REDNESS OR SWELLING NOTED AT SITE.
--- NOTE | 2019-11-14 07:46 | NUR ---
PT LEAVING OPS AT THIS TIME, NAD NOTED.
[2019-11-14 08:31] LABS: BASOPHILS 1.4 % (0-2); EOSINOPHILS 2.5 % (0-7); HEMATOCRIT 36.7 % (42.0-54.0); HEMOGLOBIN 12.5 g/dL (13.5-17.5); IMMATURE GRANULOCYTES 0.2 % (0-5); LYMPHOCYTES 32.7 % (15-50); MCH 31.3 pg (26.0-34.0); MCHC 34.1 g/dL (31.0-37.0); MCV 91.8 fL (80.0-100.0); MEAN PLATELET VOLUME 10.5 fL (7.4-10.4); MONOCYTES 15.4 % (2-11); NEUTROPHILS 47.8 % (40-80); RDW 12.1 % (11.5-14.5); WBC 4.4 10x3/uL (4.8-10.8)
[2019-11-14 08:33] LABS: PLATELET COUNT 118 10x3/uL (130-400)
== END 2019-11-14 07:46 | disposition home or self-care (01) ==
LOC: D.SDCHOLD → D.OPS 05:57 → D.SDCHOLD 05:57 → D.OPS 07:46 → D.SDCHOLD 07:46 → EDSTATUS 10:00 → D.SDCHOLD 10:00 → EDBD 10:00
PROVIDERS: ATTEND Orthopaedic Surgery
DX: M17.11 Unilateral primary osteoarthritis, right knee (principal); I25.2 Old myocardial infarction; Z72.0 Tobacco use; Z53.9 Procedure and treatment not carried out, unspecified reason

== ENCOUNTER 2019-12-15 13:36 | Inpatient (IN) | payer OTHER ==
[~2019-12-15] VITALS: Ht 180.3 cm; Wt 95.3 kg
[~2019-12-15 13:36] MED LIST changes: +VOLTAREN100 GM TOPICAL
[2020-01-12] MEDS ORDERED: TOPROL XL25 MG PO (08:17)
[2020-01-12] MEDS ORDERED: PROTONIX40 MG PO (08:18)
[2020-01-12 09:12] LABS: BASOPHILS 0.4 % (0-2); EOSINOPHILS 2.6 % (0-7); HEMATOCRIT 37.5 % (42.0-54.0); HEMOGLOBIN 13.2 g/dL (13.5-17.5); LYMPHOCYTES 37.9 % (15-50); MCH 31.8 pg (26.0-34.0); MCHC 35.2 g/dL (31.0-37.0); MCV 90.4 fL (80.0-100.0); MEAN PLATELET VOLUME 11.3 fL (7.4-10.4); MONOCYTES 9.6 % (2-11); NEUTROPHILS 49.5 % (40-80); RBC 4.15 10x6/uL (4.20-6.10); RDW 12.7 % (11.5-14.5); WBC 5.3 10x3/uL (4.8-10.8)
[2020-01-12 09:14] LABS: PLATELET COUNT 211 10x3/uL (130-400)
[2020-01-12 09:21] LABS: CALC OSMOLALITY 273 mosm/kg (275-300); CARBON DIOXIDE 25.6 mmol/L (21.0-32.0); CHLORIDE - SERUM 103 mmol/L (98-107); CREATININE - SERUM 0.9 mg/dL (0.6-1.3); GLUCOSE 99 mg/dL (74-106); POTASSIUM - SERUM 3.9 mmol/L (3.5-5.1); SODIUM 137 mmol/L (136-145); UREA NITROGEN 12 mg/dL (7-18); eGFR NON AFRICAN AMERICAN 90 mL/min (90-120)
[2020-01-12 09:51] LABS: APTT 34.6 SECONDS (22.8-39.4); PROTIME 13.2 SECONDS (11.6-15.0)
[2020-01-12 10:07] LABS: BILIRUBIN NEGATIVE (NEGATIVE); KETONE NEGATIVE (NEGATIVE); NITRITE NEGATIVE (NEGATIVE); UROBILINOGEN NORMAL (NORMAL)
[2020-01-16] VITALS (11 sets, daily range): BP systolic 103–144; BP diastolic 58–69; BMI 31.4; BMI 29.3
--- NOTE | 2020-01-16 09:26 | NUR ---
THROUGH TRAFFIC KEPT TO A MINIMUM. HIBACLENS AND ALCOHOL USED TO CLEAN BEFORE PREPPING. STERILE GOWNED AND GLOVED TO PREP WITH CHLORAPREP.
--- NOTE | 2020-01-16 19:30 | NUR ---
ALERT RESTING IN BED CPM IN USE, REPORTS BEGANING TO HAVE SOME PAIN TO LEFT KNEE, 2/10, PAIN MEDS GIVEN ORDERED, SEE SHIFT ASSESSEMNT, CALL LIGHT IN REACH, INSTRUCTED TO CALL BEFORE GETTING UP, SR UP X 2 AND BED ALARM ON
[2020-01-17 04:20] VITALS: BP 136/90
[2020-01-17 06:46] LABS: HEMATOCRIT 29.4 % (42.0-54.0); HEMOGLOBIN 9.7 g/dL (13.5-17.5); MCH 30.1 pg (26.0-34.0); MCV 91.3 fL (80.0-100.0); MEAN PLATELET VOLUME 11.6 fL (7.4-10.4); RBC 3.22 10x6/uL (4.20-6.10); RDW 13.1 % (11.5-14.5); WBC 7.9 10x3/uL (4.8-10.8)
[2020-01-17 08:47] VITALS: BP 104/61
--- NOTE | 2020-01-17 09:01 | NUR ---
PT ALERT X 4. BREATH SOUNDS CLEAR BILAT. IV TO RIGHT HAND SALINE LOCKED. DRESSING TO LEFT KNEE CDI. PT REPORTING PAIN OF 5/10, MEDICATED PER ORDERS, WILL CONTINUE TO MONITOR. BED LOW, CALL LIGHT IN REACH. NO OTHER NEEDS AT THIS TIME.
--- NOTE | 2020-01-17 09:55 | OP ---
PATIENT NAME: EMMA SANDOVAL MEDICAL RECORD: [id number] :51 LOCATION:D. D.1208 ADMISSION DATE:01/16/20 SURGEON: CASEY GARCIA DO DATE OF OPERATION: 01/16/2020 PROCEDURE PERFORMED: Left total knee arthroplasty. PREOPERATIVE DIAGNOSIS: Left knee osteoarthritis. POSTOPERATIVE DIAGNOSIS: Left knee osteoarthritis. INDICATIONS: Mr. Sandoval is a 64-year-old male who has had left knee pain and varus deformity for quite some time. He has tried all manner of nonoperative treatment and wanting to get something done surgically. I informed him of the risks including infection, bleeding, damage to nerves and vessels, fracture, need for further surgery, failure of implants, continued pain, arthrofibrosis and even and he signed a consent. SURGEON: Casey Garcia DO DESCRIPTION OF PROCEDURE: The patient was taken to the operative suite, laid in the supine position, given general anesthetic, given 2 grams of Ancef, 80 mg of gentamycin and a gram of TXA and sedated and LMA was placed. He was given a block by anesthesia in preoperative area. The left lower extremity was prepped and draped in sterile fashion. Timeout was performed. Everyone was in agreeance with the correct site, side, patient and the procedure. I then began by making marked out the incision and covered with Ioban. I then made an incision down to the capsule. I used a fresh 10-blade and did a medial parapatellar approach, take out the part of the fat pad and milled the patella down, and then entered the femoral canal and cut the distal femur and then cut the proximal tibia, then sized the femur to be 675. I had removed the meniscus as well. A 675 fit very well. This apparently appeared to size very well. I then put a 4-in-1 cutting block on using an lance wing to ensure there was no notching and there did not appear to be. I then cut the femur through the 4-in-1 cutting block, put on the trial and put in the tibial tray with a poly, foot was then ranged and marked rotation and exposed tibia, reamed and punched it and put extra holes in the tibia for cement. Cement was then mixed, put in the tibia and on the implant, impacted into place, I then impacted the femur on and put a poly in between cleaned out the patella after it had been drilled for the implant as well as the lug holes on the femur at the trialing stage. I removed the excess cement, put into 10% povidine iodine with 500 mL normal saline solution and irrigated out. While irrigating out, I noticed that the femur was notched and got an x-ray showing that it did notch. It was not significant, but there was enough that I had felt be best to put in a stem on the femur. I then waited for the implants and in the meantime reamed up in the femoral canal to an 18, put in a trial and cut the notch out for PS. I then removed that and then trialled with the PS and fit very well. We then pulled the trials out and irrigated while the implant arrived. Once the implant arrived, we assembled it, mixed more cement, put it on the femur and on the implant, impacted into place, removed the excess cement, put a 16-poly and brought the knee to an extension, put more of the 10% povidine iodine and 500 mL normal saline solution in the knee, irrigated that out for 3 minutes and the cement had dried. I then put in a 16 posterior stabilized poly. It fit very well, good medial and lateral stability in flexion and extension, locked it into place with the locking mechanism. I then irrigated the knee one more time put OPERATIVE REPORT [id number] EMMA SANDOVAL in the Tim, vancomycin and tobramycin powder. I then closed the capsule with #1 Vicryl in [id number] fashion myself and Sanchez Quezada, certified surgical director of first impressions. Sanchez Quezada then closed the skin with 2-0 Vicryl in inverted interrupted fashion and put a ZipLine on the knee. We then dressed with Adaptic, 4 x 4s, ABD, Webril, Lev wrap and TIARRA stocking up to the knee. He was then awakened and taken to recovery in stable condition. Blood loss was approximately 200 mL. COMPLICATIONS: Notch femur. TRANSINT:[id number] Voice Confirmation ID: [id number] DOCUMENT ID: [id number] CASEY GARCIA DO at 0955 CC: [id number] DICTATION DATE: 01/16/2081 MOTOR INSTALLER: 01/16/20 1510 ADM IN [facility] [address] [place] [address]
[2020-01-17 13:54] VITALS: Ht 180.3 cm; Wt 95.3 kg
--- NOTE | 2020-01-17 16:35 | NUR ---
Rehab Note- Acute Inpatient Rehab prescreen order received. The patient has [employer] insurance and will require a PreAuth. He has a pending OT Eval. Will begin PreAuth process. Will follow at this time. Thank you for this referral! Sadie Goff RN Clincial Liaison, [facility] Rehab
--- NOTE | 2020-01-17 16:50 | MORECARE ---
CASE MANAGEMENT DISCHARGE SUMMARY PATIENT: EMMA LIGHT UNIT: [id number] ADM DATE: 01/16/20 AGE: 64 : 51 SEX: M ROOM/BED: D.1208 AUTHOR: ABHISHEK BETANCOURT PHYSICIAN: REFERRING PHYSICIAN: JOSE GARCIA DO DATE OF SERVICE: 01/17/20 Discharge Plan Patient Name: EMMA LIGHT Facility: [facility]:[place] : 1955 Planned Disposition: Anticipated Discharge Date: Discharge Date: Expected LOS: Initial Reviewer: [email or web address] Initial Review Date: 01/17/2020 Generated: 01/17/20 5:49 pm Patient Name: EMMA LIGHT Page [id number] at 1650 All edits/amendments must be made on the electronic document DICTATION DATE: 01/17/201648 MAT MACHINE OPERATOR: LM 01/17/201648 RPT#: [id number] DC DATE: STATUS: ADM IN [facility] [address] [place] [address] END OF REPORT
[2020-01-17 20:00] VITALS: BP 159/55
--- NOTE | 2020-01-17 20:00 | NUR ---
RESTING IN BED, HAS REMOVED LEG FROM CPM STATES WILL TRY AGAIN IN 30 MIN HURTING TO BAD RIGHT NOW, SEE SHIFT ASSESSMENT, CALL LIGHT IN REACH
--- NOTE | 2020-01-17 21:30 | NUR ---
HAS AGAIN REMOVED LEG FROM CPM, STATES KNEE HURTING, MEDICATED FOR PAIN CPM REMOVED FROM BED INSTRUCTED TO REST WILL TRY AGAIN IN MORNING
[2020-01-18 04:30] VITALS: BP 165/79
--- NOTE | 2020-01-18 05:00 | NUR ---
UP WITH WALKER ASSISTED TO BATHROOM, THEN TO AMBULATE IN HALLWAY AND BACK TO ROOM SITTING UP IN CHAIR
[2020-01-18 05:20] LABS: HEMATOCRIT 29.7 % (42.0-54.0); HEMOGLOBIN 10.3 g/dL (13.5-17.5); MCHC 34.7 g/dL (31.0-37.0); MCV 89.5 fL (80.0-100.0); MEAN PLATELET VOLUME 11.2 fL (7.4-10.4); RBC 3.32 10x6/uL (4.20-6.10); RDW 12.9 % (11.5-14.5); WBC 9.3 10x3/uL (4.8-10.8)
--- NOTE | 2020-01-18 07:27 | NUR ---
PT AWAKE AND ALERT. WANTING TO WALK. AMBULATED WITH WALKER APPROX. 60 FEET WITH STANDBY ASSISTANCE. REMINDED PT TO PLACE WALKER IN FRONT OF HIM AND NOT ROLL IT WITH WALKING. LEFT KNEE DRESSING CLEAN DRY AND INTACT. TIARRA HOSE ON BILAT. SCDS OFF AT MOMENT. CALL LIGHT IN REACH
[2020-01-18 07:57] VITALS: BP 122/56
[2020-01-18] MEDS ORDERED: KEFLEX500 MG PO (08:38)
[2020-01-18] MEDS ORDERED: ELIQUIS2.5 MG PO (08:38)
[2020-01-18] MEDS ORDERED: oxyCODONE IR PO (08:38)
--- NOTE | 2020-01-18 09:37 | NUR ---
HAS AMBULATED WITH THERAPY AND IS LYING QUIETLY IN BED. REFUSING A PAIN PILL AT PRESENT. CALL LIGHT IN REACH
[2020-01-18 11:54] VITALS: BP 147/69
--- NOTE | 2020-01-18 12:45 | NUR ---
dressing changed to left knee. incision clean dry and intact with no reddness noted. zipper dressing remains in place. dressing applied with sharon wrap. saline lock removed. awaitning discharge papers.
--- NOTE | 2020-01-18 13:48 | NUR ---
discharge instructions reviewed with patient and family. questions answered. to front door per wheelchair with belongings.
--- NOTE | 2020-01-18 14:10 | MORECARE ---
CASE MANAGEMENT DISCHARGE SUMMARY PATIENT: EMMA LIGHT UNIT: [id number] ADM DATE: 01/16/20 AGE: 64 : 53 SEX: M ROOM/BED: D.1208 AUTHOR: ABHISHEK BETANCOURT PHYSICIAN: REFERRING PHYSICIAN: JOSE GARCIA DO DATE OF SERVICE: 01/18/20 Discharge Plan Patient Name: EMMA LIGHT Facility: [facility]:[place] : 1955 Planned Disposition: Home Anticipated Discharge Date: 01/18/20 Discharge Date: 01/18/2020 Expected LOS: 2 Initial Reviewer: [email or web address] Initial Review Date: 01/17/2020 Generated: 01/18/20 3:10 pm Last DP export: 01/17/20 3:50 pm Patient Name: EMMA LIGHT Page [id number] at 1410 All edits/amendments must be made on the electronic document DICTATION DATE: 01/18/20 1410 HIGH SCHOOL COMBINATION TEACHER: LM 01/18/20 1410 RPT#: [id number] DC DATE:01/18/20 STATUS: DIS IN [facility] [address] [place] [address] END OF REPORT
--- NOTE | 2020-01-18 14:19 | MORECARE ---
CASE MANAGEMENT DISCHARGE SUMMARY PATIENT: EMMA LIGHT UNIT: [id number] ADM DATE: 01/16/20 AGE: 64 : 53 SEX: M ROOM/BED: D.1208 AUTHOR: ABHISHEK BETANCOURT PHYSICIAN: REFERRING PHYSICIAN: JOSE GARCIA DO DATE OF SERVICE: 01/18/20 Discharge Plan Patient Name: EMMA LIGHT [facility] [facility] 1955 Planned Disposition: Home Anticipated Discharge Date: 01/18/20 Discharge Date: 01/18/2020 Expected LOS: 2 Initial Reviewer: [email or web address] Initial Review Date: 01/17/2020 Generated: 01/18/20 3:19 pm DCPIA - Discharge Planning Initial Assessment Updated by [email or web address]: Mónica Barr on 01/18/20 2:16 pm * Is the patient Alert and Oriented? Yes * PCP ANDREAS CADET APN * Pharmacy [facility] * Preadmission Environment Home with Family * ADLs Partial Dependent * Partial ADLs (Assistance needed) Transfers * Equipment Hospital Bed * Other Equipment HOSPITAL BED, WALKER, CANE, CPM, COOLING MACHINE * List name and contact numbers for known caregivers / representatives who currently or will assist patient after discharge: KRISTOFER LIGHT- [facility]- [phone] * Verbal permission to speak to the caregivers and representatives has been obtained from the patient. No * Community resources currently utilized None * Please name any agencies selected above. N/A * Additional services required to return to the preadmission environment? No * Can the patient safely return to the preadmission environment? Yes Last DP export: 01/18/20 1:10 p Patient Name: EMMA LIGHT Page 18789 at 1419 All edits/amendments must be made on the electronic document DICTATION DATE: 01/18/201418 EYEWEAR MANUFACTURING SUPERVISOR: LM 01/18/20 141 RPT#: [id number] DC DATE:01/18/20 STATUS: DIS IN [place] [place] [address] END OF REPORT
--- NOTE | 2020-01-18 14:29 | MORECARE ---
CASE MANAGEMENT DISCHARGE SUMMARY PATIENT: EMMA LIGHT UNIT: [id number] ADM DATE: 01/16/20 AGE: 64 : 53 SEX: M ROOM/BED: D.1208 AUTHOR: ASIA,DOC PHYSICIAN: REFERRING PHYSICIAN: JOSE GARCIA DO DATE OF SERVICE: 01/18/20 Discharge Plan Patient Name: EMMA LIGHT Facility: [facility]:[place] : 1955 Planned Disposition: Home Anticipated Discharge Date: 01/18/20 Discharge Date: 01/18/2020 Expected LOS: 2 Initial Reviewer: [email or web address] Initial Review Date: 01/17/2020 Generated: 01/18/20 3:28 pm Comments DCP- Discharge Planning Updated by [email or web address]: Mónica Barr on 01/18/20 1:[address] PATIENT WAS ADAMENT ABOUT BEING DISCHARGED TO HOME TODAY. HIS SON WAS AT THE BEDSIDE. HE DISCUSSED WITH DR GARCIA. CM SPOKE W/ PATIENT BRIEFLY HE WAS ANXIOUS TO LEAVE. HIS AND SON WILL BE PROVIDING TRANSPORTATION. HE HAS REQUESTED [facility] OUTPATIENT PHYSICAL THERAPY. HE STATES HE HAS ALL OF THE NECESSARY DME AT HOME IE.. HOSPITAL BED, WHEELCHAIR, WALKER, CANE , CPM. TC TO OUTPATIENT PT SERVICES. CM SPOKE W/ DILEEP. SHE ARRANGED FOR AN APPT AT 1300 ON 01/22/2020. PATIENT PROVIDED WITH COPY OF REFERRAL. WAS AT THE BEDSIDE TAKING OUT HIS BELONGINGS. SON WAS BRINGING THE CAR TO THE FRONT. PATIENT NO HAS QUESTIONS. GETTING UP TO THE WHEELCHAIR W/ CANE, WHEELCHAIR AND THERMAL SPRAY OPERATOR. PATIENT DOES NOT WISH ANY ADDITIONAL QUESTIONS. DCPIA - Discharge Planning Initial Assessment Updated by [id number]: Móinca Barr on 01/18/20 2:16 pm * Is the patient Alert and Oriented? Yes * PCP ANDREAS CADET APN * Pharmacy [facility] [address] * Preadmission Environment Home with Family * ADLs Partial Dependent * Partial ADLs (Assistance needed) Transfers * Equipment Hospital Bed * Other Equipment HOSPITAL BED, WALKER, CANE, CPM, COOLING MACHINE * List name and contact numbers for known caregivers / representatives who currently or will assist patient after discharge: KRISTOFER LIGHT- [facility]- [phone] * Verbal permission to speak to the caregivers and representatives has been obtained from the patient. No * Community resources currently utilized None * Please name any agencies selected above. N/A * Additional services required to return to the preadmission environment? No * Can the patient safely return to the preadmission environment? Yes Last DP export: 01/18/20 1:19 p Patient Name: EMMA LIGHT Page [id number] at 1429 All edits/amendments must be made on the electronic document DICTATION DATE: 01/18/201427 KILN REMOVER: LM 01/18/20 142 RPT#: [id number] DC DATE:01/18/20 STATUS: DIS IN [facility] [address] [place] [address] END OF REPORT
--- NOTE | 2020-01-18 14:38 | MORECARE ---
CASE MANAGEMENT DISCHARGE SUMMARY PATIENT: EMMA LIGHT UNIT: [id number] ADM DATE: 01/16/20 AGE: 64 : 51 SEX: M ROOM/BED: D.1208 AUTHOR: ASIA,DOC PHYSICIAN: REFERRING PHYSICIAN: JOSE GARCIA DO DATE OF SERVICE: 01/18/20 Discharge Plan Patient Name: EMMA LIGHT Facility: [facility]:[place] : 1955 Planned Disposition: Home Anticipated Discharge Date: 01/18/20 Discharge Date: 01/18/2020 Expected LOS: 2 Initial Reviewer: [email or web address] Initial Review Date: 01/17/2020 Generated: 01/18/20 3:37 pm Comments DCP- Discharge Planning Updated by [email or web address]: Mónica Barr on 01/18/20 1:[address] PATIENT WAS ADAMENT ABOUT BEING DISCHARGED TO HOME TODAY. HIS SON WAS AT THE BEDSIDE. HE DISCUSSED WITH DR GARCIA. CM SPOKE W/ PATIENT BRIEFLY HE WAS ANXIOUS TO LEAVE. HIS AND SON WILL BE PROVIDING TRANSPORTATION. HE HAS REQUESTED [facility] OUTPATIENT PHYSICAL THERAPY. HE STATES HE HAS ALL OF THE NECESSARY DME AT HOME IE.. HOSPITAL BED, WHEELCHAIR, WALKER, CANE , CPM. TC TO OUTPATIENT PT SERVICES. CM SPOKE W/ DILEEP. SHE ARRANGED FOR AN APPT AT 1300 ON 01/22/2020. PATIENT PROVIDED WITH COPY OF REFERRAL. WAS AT THE BEDSIDE TAKING OUT HIS BELONGINGS. SON WAS BRINGING THE CAR TO THE FRONT. PATIENT NO HAS QUESTIONS. GETTING UP TO THE WHEELCHAIR W/ CANE, WHEELCHAIR AND DERRICK BUILDER. PATIENT DOES NOT WISH ANY ADDITIONAL QUESTIONS. DCPIA - Discharge Planning Initial Assessment Updated by [id number]: Mónica Barr on 01/18/20 2:16 pm * Is the patient Alert and Oriented? Yes * PCP ANDREAS CADET APN * Pharmacy [facility] [address] * Preadmission Environment Home with Family * ADLs Partial Dependent * Partial ADLs (Assistance needed) Transfers * Equipment Hospital Bed * Other Equipment HOSPITAL BED, WALKER, CANE, CPM, COOLING MACHINE * List name and contact numbers for known caregivers / representatives who currently or will assist patient after discharge: KRISTOFER LIGHT- [facility]- [phone] * Verbal permission to speak to the caregivers and representatives has been obtained from the patient. No * Community resources currently utilized None * Please name any agencies selected above. N/A * Additional services required to return to the preadmission environment? No * Can the patient safely return to the preadmission environment? Yes Last DP export: 01/18/20 1:19 p Patient Name: EMMA LIGHT Page [id number] at 1438 All edits/amendments must be made on the electronic document DICTATION DATE: 01/18/207 FULL STACK PYTHON DEVELOPER: LM 01/18/20 1437 RPT#: [id number] DC DATE:01/18/20 STATUS: DIS IN [facility] [address] [place] [address] END OF REPORT
== END 2020-01-18 13:50 | disposition home or self-care (01) | DRG 470 ==
LOC: D.M3 01-16 05:15 → D.SDCHOLD 01-16 05:15 → D.M3 01-16 10:37
PROVIDERS: ADMIT Orthopaedic Surgery; ATTEND Orthopaedic Surgery
PROC: 0SRD0J9 Replacement of Left Knee Joint with Synthetic Substitute, Cemented, Open Approach (ICD-10-PCS; principal; 2020-01-16 07:00)
DX: M17.12 Unilateral primary osteoarthritis, left knee (principal); I25.10 Atherosclerotic heart disease of native coronary artery without angina pectoris; I10 Essential (primary) hypertension; Z72.0 Tobacco use

== ENCOUNTER 2020-01-24 13:55 | Observation (INO) | payer OTHER ==
[~2020-01-24] VITALS: Ht 180.3 cm; Wt 95.5 kg
--- NOTE | ~2020-01-24 | OP ---
PATIENT NAME: EMMA LIGHT MEDICAL RECORD: [id number] :51 LOCATION:[facility] ADMISSION DATE:01/24/20 SURGEON: DG ALVAREZ MD DATE OF OPERATION: 01/25/2020 PROCEDURE: Left heart catheterization, selective coronary angiography, right femoral artery approach. CATHETERS: A 5-Wolof sheath, 5/4 left and right Darius, 5/4 pig. Procedure was well tolerated. The patient was returned to the chi. Sheath removed. ExoSeal device placed. FINDINGS: Left ventriculography in 30-degree MARKHAM view: Normal wall motion and normal systolic function. CORONARY ANATOMY: LEFT MAIN: Left main is free of disease. LAD: An area of previous stent is widely patent. Otherwise luminal irregularities only. CIRCUMFLEX: Luminal irregularities only. RIGHT CORONARY ARTERY: Dominant artery. No flow obstructive disease. IMPRESSION: Probable demand ischemia with combination of anemia postop, etc. LV function remains normal. Continue therapy from cardiovascular standpoint. TRANSINT:[id number] Voice Confirmation ID: [id number] DOCUMENT ID: [id number] DG ALVAREZ MD CC: [id number] DICTATION DATE: 01/25/201726 MAIL OFFICER: 01/26/20 0017 DIS IN 01/25/20 [facility] [id number]
--- NOTE | ~2020-01-24 | HEMODYNAMI ---
PATIENT:EMMA LIGHT MEDICAL RECORD: [id number] : 51 LOCATION:[facility] JanethE12[facility]# [id number] ADMISSION DATE: 01/24/20 Generatedon:01/25/202017:19 Patient name: EMMA LIGHT Patient #: [id number] SSN: [id number] : 1955 Date of study: 01/25/2020 Page: Of Hemodynamic Procedure Report Patient Data Patient Demographics Procedure consent was obtained First Name: EMMA Gender: Male Last Name: NADEGE : 1955 Middle Initial: FLORENCIO Age: 64 year(s) Patient #: [id number] Race: SSN: [id number] Additional ID: [id number] Contact details Address: [address] [place] [address] State: [place] City: [place] Zip code: [address] Past Medical History Allergies: No known allergies Admission Admission Data Admission Date: 01/24/2020 Admission Time: 23:00 Arrival Date: 01/18/2020 Arrival Time: 0:00 Admit Source: Other Insurance Payor: Private Room #: D.E12 health insurance [facility] #: [id number] Height (in.): 70.87 BSA: 2.15 (m2) Height (cm.): 180 BMI: 29.32 (kg/m2) Weight (lbs.): 209.44 Weight (kg.): 95 Lab Results Lab Result Date: 01/25/2020 Lab Result Time: 0:00 Biochemistry Name Units Result Min Max BUN mg/dl 10 --(-*--)-- 7 18 CK-MB ng/ml 1.7 --(-*--)-- 0 3.6 Creatinine mg/dl 0.7 --(*---)-- 0.6 1.3 eGFR ml/min 90 --(*---)-- 90 120 NONAFRICAN Troponin l ng/ml 0.816 --(----)-* 0 0.06 CBC Name Units Result Min Max Hematocrit % 27.8 *-(----)-- 42 54 Hemoglobin g/dl 9.5 *-(----)-- 13.5 17.5 Procedure Procedure Types Cath Procedure Diagnostic Procedure [facility] w/Coronaries Sedation Charges Moderate Sedation up to 15 minutes Procedure Description Procedure Date Procedure Date: 01/25/2020 Procedure Start Time: 17:05 Procedure End Time: 17:17 Procedure Staff Name Function Jacob Underwood MD Performing Physician Antelmo Pastor RN Nurse Nola Aguilar RN Nurse Rebekah Azul RT Monitor Ling Hernandez RT Scrub Procedure Data Cath Procedure Fluoroscopy Diagnostic fluoroscopy Total fluoroscopy Time: 1.2 time: 1.2 min min Diagnostic fluoroscopy Total fluoroscopy dose: 176 dose: 176 mGy mGy Contrast Material Contrast Material Type Amount (ml) Isovue 370 55 Entry Location Entry Primary Successful Side Size Upsize Upsize Entry Closure Succes sful Closure Location (Fr) 1 (Fr) 2 (Fr) Remarks Device Remarks Femoral Right 5 Fr Exoseal artery Estimated blood loss: 5 ml Diagnostic catheters Device Type Used For End Catheter Placement MULTIPACK JL 4.0 5Fr Procedure catheter MULTIPACK 3DRC 5Fr Procedure catheter MULTIPACK Pigtail 5 Fr Procedure catheter Procedure Complications No complications Procedure Medications Medication Administration Route Dosage Oxygen etCO2 Nasal cannula 2 l/min Lidocaine 2% added to field 20 Heparin Flush Bag added to field 2 bags (1000units/500ml NS) 0.9% NaCl I.V. 100 ml/hr Versed I.V. 1 mg Fentanyl I.V. 100 mcg Benadryl I.V. 50 mg Versed I.V. 1 mg Fentanyl I.V. 50 mcg Fentanyl I.V. 50 mcg Hemodynamics Rest BSA: 2.15 (m2) HGB: 9.5 (g/dl) O2 Consumption: Estimated: 251.98 (ml/min) O2 Con sumption indexed: Estimated:117.2 (ml/min/m) Heart Rate: 72 (bpm) Pressure Samples Time Site Value (mmHg) Purpose Heart Use Rate(bpm) 17:11 LV 157/-16,-16 Snapshot 117 17:11 AO 136/46(88) Pullback 66 17:11 LV 139/-11,-11 Pullback 66 Gradients Valve Time Site 1 Site 2 Mean SEP/DFP Peak To Heart Use (mmHg) (sec/min) Peak Rate (mmHg) (bpm) Aortic 17:11 LV AO 2 18 3 66 139/-11,-11 136/46(88) Calculations Valve P-P Mean Valve Index Valve Source Name Gradient Area Flow (cm2) Aortic 3 2 3 2 Snapshots Pre Cath Intra NCS Post Cath Vital Signs Time Heart Resp SPO2 etCO2 NIBP (mmHg) Rhythm Pain Sedation Rate (ipm) (%) (mmHg) Status Level (bpm) 16:56:33 65 21 100 20.9 Measuring NSR (Missing) 10(A) 16:56:35 63 21 99 29.2 161/85(120) NSR (Missing) 10(A) 17:01:34 60 15 100 29.2 Measuring NSR (Missing) 10(A) 17:02:43 65 18 100 29.2 Time NSR (Missing) 10(A) Exceeded 17:05:01 59 12 100 29.2 160/79(132) NSR (Missing) 10(A) 17:09:21 69 17 100 29.9 162/89(109) NSR (Missing) 10(A) 17:13:41 66 16 100 27.7 165/91(126) NSR (Missing) 10(A) Medications Time Medication Route Dose Verified Delivered Reason Notes Eff ectiveness by by 16:50:23 Benadryl I.V. 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 100 Jacob Buffie Per ml/hr [facility] Adriel Aguilar RN physician 17:01:50 Versed I.V. 1 mg Jacob Buffie for [facility] Adriel Aguilar RN sedation 17:01:55 Fentanyl I.V. 100 Jacob Buff[address] for mcg [facility] Adriel Aguilar RN sedation 17:06:17 Versed I.V. 1 mg [address]ie for [facility] Adriel Aguilar RN sedation 17:06:21 Fentanyl I.V. 50 Jacob Vaca for [facility] Aguilar RN sedation 17:13:41 Fentanyl I.V. 50 Jacob Vaca for [facility] Aguilar RN sedation Procedure Log Time Note 15:57:04 Arrival Date: 01/18/2020 12:00:00 AM 15:57:05 Admit Source: Other 16:00:14 Patient Height : 70.87 inches 16:00:18 Patient Weight : 209.44 lbs 16:16:03 Deborah Tadeo RT(R) sent for patient. Start room use. 16:26:19 Patient received from ED to CCL 3 Alert and oriented. Tansferred to table in Supine position. 16:41:19 Procedure Status Urgent Heart Cath (IP). 16:41:20 Time tracking: Regular hours (M-F 7:00 - 5:00) 16:41:24 Plan of Care:Hemodynamics will remain stable., Cardiac rhythm will remain stable., Comfort level will be maintained., Respiratory function will remain adequate., Patient/ family verbilizes understanding of procedure., Procedure tolerated without complication., Recovers from procedure without complications.. 16:46:31 Signed procedure consent form obtained from patient. 16:46:33 Warm blankets applied, and iban hugger turned on for patient comfort. 16:46:33 Correct patient and procedure confirmed by team. 16:46:34 ECG and BP/O2 sat monitors applied to patient. 16:49:32 Insurance Payor : Private health insurance 16:50:23 Benadryl 50 mg I.V. was administered by Nola Aguilar RN; used for procedure; Verbal order read back and verified. 16:50:59 Lab Result : BUN 10 mg/dl 16:50:59 Lab Result : eGFR NONAFRICAN 90 ml/min 16:50:59 Lab Result : Hemoglobin 9.5 g/dl 16:50:59 Lab Result : Hematocrit 27.8 % 16:50:59 Lab Result : Creatinine 0.7 mg/dl 16:50:59 Lab Result : CK-MB 1.7 ng/ml 16:50:59 Lab Result : Troponin l 0.816 ng/ml 16:51:04 Full Disclosure recording started 16:51:16 H&P Date Dictated: 01/24/2020 Within 30 days and on chart.. 16:51:16 Pre-procedure instructions explained to patient. 16:51:17 Pre-op teaching completed and patient verbalized understanding. 16:51:19 Family unavailable. 16:51:20 Patient NPO since Midnight. 16:51:26 Patient allergic to No known allergies 16:51:44 Pre procedure: right dorsailis pedis pulse 2+ Normal; easily identifiable; not easily obliterated 16:52:04 IV patent on arrival in right antecubital with 0.9% NaCl at KVO. 16:52:10 Lab results completed and on chart. 16:52:14 Stress Test: no; N/A ? 16:52:17 Alarms reviewed by R. N. 16:52:17 Sharps counted by scrub and verified by R.N. 16:54:45 Vital chart was started 16:54:52 Is the patient allergic to Iodine/contrast media? No. 16:54:55 Was the patient premedicated? No 16:54:56 Is patient on blood thinner?Yes 16:54:59 ACC The patient was administered the following blood thiners within the last 24 hours: Eliquis 16:55:02 Patient diabetic? No. 16:55:04 If diabetic: On Metformin? N/A 16:55:05 ----Pre-sedation anethsthesia assessment.---- 16:55:08 Previous problem with sedation/anesthesia? No ? 16:55:09 Snore? No 16:55:11 Sleep apnea? No 16:55:13 Deviated septum? No 16:55:14 Opens mouth fully? Yes 16:55:19 Sticks out tongue? Yes 16:55:22 Airway obstruction? No ? 16:55:23 Dentures? No ? 16:55:27 Patient pain scale 0/10 ?. 16:55:33 Right groin area was prepped with chlora-prep and draped in sterile fashion 16:55:36 Use device set Femoral Dx 16:55:38 ACIST Syringe (82753) opened to sterile field. 16:55:39 Bag Decanter (2002) opened to sterile field. 16:55:39 Medline Cath Pack ([id number]) opened to sterile field. 16:55:40 ACIST Hand Control (62598) opened to sterile field. 16:55:41 ACIST Manifold (27577) opened to sterile field. 16:55:42 DIAGNOSTIC Multipack 5Fr catheter set (UZ2226) opened to sterile field. 16:55:43 SHEATH 5FR [place] (XZF770) opened to sterile field. 16:55:43 EMERALD Guide Wire (907-282) opened to sterile field. 16:55:48 Baseline sample Acquired. 16:55:52 Rhythm: sinus rhythm , w/ ST elevation 16:59:49 Oxygen 2 l/min etCO2 Nasal cannula was administered by Nola Aguilar RN; used for procedure; Verbal order read back and verified. 16:59:59 Lidocaine 2% 20ml vial added to field was administered by Nola Aguilar RN; for local anesthetic; Verbal order read back and verified. 17:00:05 Heparin Flush Bag (1000units/500ml NS) 2 bags added to field was administered by Nola Aguilar RN; used for procedure; Verbal order read back and verified. 17:00:20 0.9% NaCl 100 ml/hr I.V. was administered by Nola Aguilar RN; Per physician; Verbal order read back and verified. 17:00:39 --------ALL STOP TIME OUT------ 17:00:40 Final Timeout: patient, procedure, and site verified with staff and physician. All members of the team are in agreement. 17:00:42 Right groin site verified by team. 17:00:45 Fire Safety Assessment: A--An alcohol-based skin anteseptic being used preoperatively., C--Open oxygen or nitrous oxide is being used., D--An ESU, laser, or fiber-optic light is being used. 17:00:49 Physical assessment completed. ASA score P 2 - A patient with mild systemic disease as per Jacob Underwood MD. 17:00:52 1) 90+ Normal kidney functon but urine findings or structural abnormalities or genetic trait point to kidney disease. 17:00:54 Maximum allowable contrast dose (3.7 X eGFR X 0.75)250 ml. 17:00:58 Sedation plan: IV Moderate Sedation Medication:Versed, Fentanyl 17:01:50 Versed 1 mg I.V. was administered by Nola Aguilar RN; for sedation; Verbal order read back and verified. 17:01:55 Fentanyl 100 mcg I.V. was administered by Nola Aguilar RN; for sedation; Verbal order read back and verified. 17:05:13 Procedure started. 17:05:17 Local anesthetic to right femoral artery with Lidocaine 2% by Jacob Underwood MD.INITIAL ACCESS ONLY 17:06:17 Versed 1 mg I.V. was administered by Nola Aguilar RN; for sedation; Verbal order read back and verified. 17:06:21 Fentanyl 50 mcg I.V. was administered by Nola Aguilar RN; for sedation; Verbal order read back and verified. 17:06:41 A 5 Fr sheath was inserted into the Right Femoral artery 17:06:48 A MULTIPACK JL 4.0 5Fr catheter was advanced over the wire and used for Procedure. 17:06:54 LCA angiography performed. 17:06:57 Injector settings: Ml/sec: 3, Volume: 6, 17:08:18 Catheter removed. 17:08:24 A MULTIPACK 3DRC 5Fr catheter was advanced over the wire and used for Procedure. 17:09:10 RCA angiography performed. 17:09:14 Injector settings: Ml/sec: 3, Volume: 6, 17:09:33 ACCDominant side:Right 17:09:46 Catheter removed. 17:09:52 A MULTIPACK Pigtail 5 Fr catheter was advanced over the wire and used for Procedure. 17:09:58 LV gram done using MARKHAM 17:10:01 Injector settings: Ml/sec: 5, Volume: 15, 17:11:14 LV hemodynamics recorded. 17:11:29 EF : 55 % 17:11:39 Catheter removed. 17:11:43 EXOSEAL 5Fr (EX500) opened to sterile field. 17:11:59 Sheath removed intact; hemostasis achieved with Exoseal to the Right Femoral artery. 17:12:06 Fluoroscopy time 01.20 minutes. 17:12:13 Fluoroscopy dose: 176 mGy 17:12:13 Flurop Dose total: 176 17:12:19 Dose Area Product 87280 mGy/cm. 17:12:36 Procedure ended.(Physican Out) 17:13:41 Fentanyl 50 mcg I.V. was administered by Nola Aguilar RN; for sedation; Verbal order read back and verified. 17:13:45 Contrast amount:Isovue 370 55ml. 17:13:49 Maximum allowable dose exceeded? No. 17:13:50 Sharps counted by scrub and verified by R.N. 17:14:15 Post-op/insertion site Right Femoral artery dressed using a 4 x 4 and Tegaderm. 17:14:25 Post right femoral artery:stable, soft, clean and dry 17:14:27 Post Procedure Pulses reassessed and unchanged 17:14:30 Post procedure: right dorsailis pedis pulse 2+ Normal; easily identifiable; not easily obliterated. 17:14:35 Post-procedure physical assessment completed. ASA score P 2 - A patient with mild systemic disease as per Jacob Underwood MD. 17:14:38 Post procedure rhythm: unchanged. 17:14:42 Estimated blood loss: 5 ml 17:14:43 Post procedure instruction explained to patient.Patient verbalizes understanding. 17:14:44 Patient needs reinforcement of post procedure teaching. 17:15:15 Procedure type changed to Cath procedure, Diagnostic procedure, LHC, LHC w/Coronaries, Sedation Charges, Moderate Sedation up to 15 minutes 17:15:33 Procedure and supply charges have been captured, reviewed, submitted and are correct. 17:15:37 Procedure Complication : No complications 17:15:40 Vital chart was stopped 17:15:42 [facility] Findings: mild to moderate CAD (<70%) 17:15:46 Operative report dictated upon procedure completion. 17:15:47 See physician's report for complete and final results. 17:15:50 Report given to Pre/Post Procedure Room. 17:15:53 Patient transfered to Pre/Post Procedure Room with Stretcher. 17:17:55 Procedure ended. 17:17:55 Full Disclosure recording stopped 17:17:59 End room use (Document Last) 17:18:11 End room use (Document Last) 17:18:27 End room use (Document Last) Device Usage Item Name Manufacture Quantity Catalog Hospital Part Current Minimal L ot# / Number Charge Number Stock Stock Serial# Code ACIST Acist 1 30806 161764 604270 [id number] 20 Syringe Medical (99110) Systems Inc Bag Microtek 1 650042 14697 650677 5 Decanter Medical Inc. () Medline Medline 1 [id number] 024781 00966 566445 5 Cath Pack ([id number]) ACIST Hand Acist 1 97477 510652 558917 853755 5 Control Medical (03120) Systems Inc ACIST Acist 1 55970 522469 703584 606627 5 Manifold Medical (63626) Systems Inc DIAGNOSTIC Cardinal 1 CE6268 097483 57800 613456 30 Multipack iRates 5Fr catheter set (ZQ7098) SHEATH 5FR Terumo 1 HLF171 124289 175793 306390 5 [place] (DMA570) EMERALD Cardinal 1 502455 778983 826978 961921 5 Guide Wire iRates (502-108) MULTIPACK Cardinal 1 914288 5 JL 4.0 5Fr Health catheter MULTIPACK Cardinal 1 439627 5 3DRC 5Fr Health catheter MULTIPACK Cardinal 1 074516 5 Pigtail 5 Health Fr catheter EXOSEAL 5Fr Cardinal 1 EX500 782123 373771 488436 10 (EX500) Health Signature Audit [place] Stage Time Signature Unsigned Intra-Procedure 01/25/2020 Rebekah Azul 5:18:11 PM RT(R) Intra-Procedure 01/25/2020 Nola Aguilar RN 5:18:27 PM Intra-Procedure 01/25/2020 Jacob Banks 5:19:10 PM Adriel RUSSELL [facility] [address] [place] [address]
--- NOTE | ~2020-01-24 | CN ---
PATIENT NAME:EMMA LIGHT MEDICAL RECORD: [id number] : 51 LOCATION:[facility].E12- ADMIT DATE: 01/24/20 ACCOUNT: [id number] CONSULTING PHYSICIAN: DG ALVAREZ MD REFERRING PHYSICIAN: KENN RIVERA MD DATE OF CONSULTATION: 01/25/2020 HISTORY OF PRESENT ILLNESS: A 64-year-old gentleman with known history of coronary artery disease, status post intervention, attempted to rehab postoperatively, total knee replacement, was having intermittent chest pressure and tightness, was subsequently found to have NSTEMI. We are asked to see him concerning his cardiovascular status. PAST MEDICAL HISTORY: Includes: 1. History of hypertension. 2. Hyperlipidemia. 3. Coronary artery disease as described above. MEDICATIONS: Include Eliquis 2.5 p.o. b.i.d., lisinopril 10/12.5 p.o. every day, pravastatin 10 at bedtime, Toprol 25 at bedtime, Protonix 40 every day. SOCIAL HISTORY: Smokes about a pack a day, nondrinker. Prior to surgery, he was able to care of all his ADLs, is doing to a rehab postoperatively. REVIEW OF SYSTEMS: The patient reports easy bruising but reports no swollen glands. The patient reports no fever, no night sweats, no significant weight gain, no significant weight loss. No significant exercise tolerance. The patient reports no dry eyes, no irritation, no vision change. Patient reports no difficulty hearing and no ear pain. Patient reports no frequent nose bleeds or nose and sinus problems. Patient reports on arm pain on exertion. No shortness of breath while lying down. No history of heart murmur. Patient reports no cough, no wheezing or coughing up blood. Patient reports no abdominal pain, no vomiting. Normal appetite. No diarrhea and not vomiting blood. No nausea and no constipation. Patient reports no incontinence. No difficulty urinating. No hematuria. No increased frequency. Patient reports no muscle aches. No weakness, no arthralgias, no back pain. No swelling of the extremities. Patient reports no abnormal mole, no jaundice, no rashes. Reports no loss of consciousness. No weakness and no numbness. No seizures, dizziness, or headaches. The patient reports no depression, no sleep disturbance, feeling safe in a relationship and no alcohol abuse. Patient reports on fatigue. Reports no runny nose or sinus pressure. No itching, no hives, and no frequent sneezing. PHYSICAL EXAMINATION: GENERAL: No acute distress, appears stated age. VITAL SIGNS: Blood pressure 150/68, pulse 81 and regular. HEENT: Normocephalic, atraumatic. NECK: No JVD or bruit. HEART: Regular. LUNGS: Slight expiratory phase, no wheezing. ABDOMEN: Soft, nontender. EXTREMITIES: Pulses 2+. No edema. IMPRESSION: Postoperative non-ST elevation myocardial infarction. CONSULT REPORT [id number] EMMA LIGHT PLAN: For angiography, intervention based on above. TRANSINT:[id number] Voice Confirmation ID: [id number] DOCUMENT ID: [id number] DG ALVAREZ MD CC: [id number] DICTATION DATE: 01/25/20 1240 BUTTON MACHINE OPERATOR: 01/25/20 1451 ADM IN [place] [id number] [place] [address]
[~2020-01-24 13:55] MED LIST changes: +ELIQUIS2.5 MG PO; +KEFLEX500 MG PO; +PROTONIX40 MG PO; +TOPROL XL25 MG PO; +oxyCODONE IR PO
[2020-01-24 14:10] VITALS: Ht 180.3 cm; Wt 95.5 kg
[2020-01-24 14:51] LABS: BASOPHILS 0.3 % (0-2); EOSINOPHILS 1.2 % (0-7); HEMATOCRIT 28.4 % (42.0-54.0); HEMOGLOBIN 9.7 g/dL (13.5-17.5); IMMATURE GRANULOCYTES 0.2 % (0-5); LYMPHOCYTES 23.2 % (15-50); MCH 30.6 pg (26.0-34.0); MCHC 34.2 g/dL (31.0-37.0); MCV 89.6 fL (80.0-100.0); MEAN PLATELET VOLUME 9.4 fL (7.4-10.4); MONOCYTES 10.8 % (2-11); NEUTROPHILS 64.3 % (40-80); RBC 3.17 10x6/uL (4.20-6.10); RDW 12.1 % (11.5-14.5); WBC 5.9 10x3/uL (4.8-10.8)
[2020-01-24 14:57] LABS: PLATELET COUNT 355 10x3/uL (130-400)
[2020-01-24 15:08] LABS: APTT 35.1 SECONDS (22.8-39.4); INR 1.11 (0.85-1.17); PROTIME 14.3 SECONDS (11.6-15.0)
[2020-01-24 15:13] LABS: CALC OSMOLALITY 254 mosm/kg (275-300); CALCIUM 8.6 mg/dL (8.5-10.1); CARBON DIOXIDE 24.9 mmol/L (21.0-32.0); CHLORIDE - SERUM 96 mmol/L (98-107); CREATININE - SERUM 0.8 mg/dL (0.6-1.3); GLUCOSE 115 mg/dL (74-106); POTASSIUM - SERUM 4.2 mmol/L (3.5-5.1); SODIUM 127 mmol/L (136-145); UREA NITROGEN 10 mg/dL (7-18); eGFR NON AFRICAN AMERICAN > 90 mL/min (90-120)
[2020-01-24 15:24] LABS: D-DIMER-QUANTITATIVE 4.08 ug/mLFEU (0.20-0.54)
[2020-01-24 15:34] LABS: ALBUMIN 3.2 g/dL (3.4-5.0); ALKALINE PHOSPHATASE 61 U/L (30-120); ALT (SGPT) 15 U/L (10-68); BILIRUBIN - TOTAL 0.63 mg/dL (0.2-1.3); CKMB 0.9 U/L (0.0-3.6); CREATINE KINASE 67 UL (21-232); MAGNESIUM - SERUM 1.8 mg/dL (1.8-2.4); PROTEIN - SERUM 7.1 g/dL (6.4-8.2); TROPONIN-I < 0.017 ng/mL (0.000-0.060)
[2020-01-24 19:05] VITALS: BP 134/70
--- NOTE | 2020-01-24 19:35 | NUR ---
NURSE AT BEDSIDE TO ADMINISTER MEDICATIONS. PT STATES HE DOES NOT WANT MORPHINE OR ZOFRAN AT THIS TIME. NURSE INFORMS PT SHE WILL RERTURN MEDICATION AND ASKS PT TO LET HER KNOW IF HE CHANGES HIS MIND. NO FURTHER NEEDS EXPRESSED AT THIS TIME.
--- NOTE | 2020-01-24 21:32 | NUR ---
PT PROVIDED WITH A SANDWICH TRAY AND LEMON SAC AND [place] [employer] UPON REQUEST. PT DENIES OTHER NEEDS AT THIS TIME. NO ACUTE DISTRESS NOTED, WILL CONTINUE TO MONITOR.
[2020-01-24 23:02] VITALS: BP 127/66
--- NOTE | 2020-01-25 | NUR ---
PT URINE OUTPUT SINCE 1899 ON 01/24/2020 IS 1100.
--- NOTE | 2020-01-25 00:14 | NUR ---
PT IN BED RESTING ON RIGHT LATERAL SIDE, BREATHS EVEN, NO ACUTE DISTRESS NOTED, PT ON GRISTMILLER. WILL CONTINUE TO MONITOR FOR CHANGES.
[2020-01-25 00:42] LABS: CKMB 2.1 U/L (0.0-3.6); CREATINE KINASE 80 UL (21-232)
--- NOTE | 2020-01-25 03:09 | NUR ---
ASSUMED CARE OF PT AT THIS TIME. REPORT RECEIVED FROM WARD KAPLAN. MAINTANENCE FLUIDS CONTINUE TO INFUSE. IV DRESSING DRY AND INTACT. NO SIGNS OF ERYTHEMA OR PAIN.
[2020-01-25 03:25] VITALS: BP 142/56
--- NOTE | 2020-01-25 03:30 | NUR ---
PT URINE OUTPUT SINCE 0000 IS 325 ML.
[2020-01-25 06:18] VITALS: BP 157/77
[2020-01-25 06:47] LABS: BASOPHILS 0.4 % (0-2); EOSINOPHILS 1.8 % (0-7); HEMATOCRIT 27.8 % (42.0-54.0); HEMOGLOBIN 9.5 g/dL (13.5-17.5); IMMATURE GRANULOCYTES 0.2 % (0-5); MCH 30.4 pg (26.0-34.0); MCHC 34.2 g/dL (31.0-37.0); MCV 89.1 fL (80.0-100.0); MEAN PLATELET VOLUME 9.4 fL (7.4-10.4); MONOCYTES 13.2 % (2-11); NEUTROPHILS 49.4 % (40-80); PLATELET COUNT 355 10x3/uL (130-400); RBC 3.12 10x6/uL (4.20-6.10); RDW 12.3 % (11.5-14.5); WBC 5.1 10x3/uL (4.8-10.8)
[2020-01-25 07:28] LABS: CALC OSMOLALITY 268 mosm/kg (275-300); CALCIUM 8.4 mg/dL (8.5-10.1); CARBON DIOXIDE 24.6 mmol/L (21.0-32.0); CHLORIDE - SERUM 102 mmol/L (98-107); CHOL - HDL RATIO 5.5 ratio (2.3-4.9); CHOLESTEROL, TOTAL 164 mg/dL (0-200); CKMB 1.7 U/L (0.0-3.6); CREATINE KINASE 69 UL (21-232); CREATININE - SERUM 0.7 mg/dL (0.6-1.3); GLUCOSE 91 mg/dL (74-106); HDL CHOLESTEROL 30 mg/dL (32-96); LDL CHOLESTEROL 118 mg/dL (0-100); LDL-HDL RATIO 3.9 ratio (1.5-3.5); MAGNESIUM - SERUM 1.9 mg/dL (1.8-2.4); PHOSPHOROUS 2.7 mg/dL (2.5-4.9); POTASSIUM - SERUM 4.3 mmol/L (3.5-5.1); SODIUM 135 mmol/L (136-145); TRIGLYCERIDE 81 mg/dL (30-200); UREA NITROGEN 10 mg/dL (7-18); eGFR NON AFRICAN AMERICAN > 90 mL/min (90-120)
[2020-01-25 07:31] LABS: TROPONIN-I 0.816 ng/mL (0.000-0.060)
--- NOTE | 2020-01-25 08:15 | NUR ---
PT DAUGHTER: JARVIS GUILLORY [phone]
[2020-01-25 09:11] LABS: ALT (SGPT) 15 U/L (10-68)
[2020-01-25 10:45] VITALS: BP 152/68
--- NOTE | 2020-01-25 17:25 | NUR ---
PT RECEIVED VIA STRETCHER FROM TICKET TAKER FOR RECOVERY. PT AWAKE BUT DROWSY, DENIES PAIN OR DISCOMFORT. IV PATENT INFUSING VIA L ARM PER ORDERS. PT PLACED ON CARDIAC MONITORS AND O2 VIA NC AT 2L. HR SB RATE 54, BP 170/65, RR 14, SAT 98. 5FR EXOCELE TO R GROIN, DRESSING CDI NO S/S HEMATOMA OR BLEEDING NOTED. LEG PINK AND WARM, PEDAL PULSES [place]. PT INSTRUCTED TO KEEP HEAD ON PILLOW AND LEG STRAIGHT. PT VERBALIZED UNDERSTANDING. CALL LIGHT IN REACH
--- NOTE | 2020-01-25 17:45 | NUR ---
PT RESTING COMFORTABLY, DENIES PAIN OR NEEDS. SIPS OF WATER GIVEN. DAUGHTER CALLED AND INFORMED OF DISCHARGE TIME. R GROIN SOFT, DRESSING CDI NO S/S HEMATOMA NOTED. CALL LIGHT IN REACH
--- NOTE | 2020-01-25 18:29 | NUR ---
R GROIN SOFT, NO S/S HEMATOMA OR BLEEDING NOTED. HOB ELEVATED, SANDWICH TRAY SERVED. VSS. CALL LIGHT IN REACH. PT VOIDED 300 CC CLEAR YELLOW URINE VIA URINAL.
--- NOTE | 2020-01-25 18:50 | NUR ---
DISCHARGE INSTRUCTIONS REVIEWED W PT, HE VERBALIZED UNDERSTANDING. IV REMOVED W CATH INTACT. MONITORS REMOVED. GROIN SOFT, DRESSING CDI NO S/S HEMATOMA. PT UP TO DRESS FOR DISCHARGE
--- NOTE | 2020-01-25 19:10 | NUR ---
PT DISCHARGED VIA WC TO DAUGHTER WAITING IN PRIVATE VEHICLE. PT HAD ALL BELONGINGS AND DISCHARGE INSTRUCTIONS
== END 2020-01-25 19:15 | disposition home or self-care (01) ==
LOC: D.ER 13:55 → D.EDHOLD 23:00 → OBSVTIME 23:00 → D.EDHOLD 23:00 → D.CLR 01-25 17:31
PROVIDERS: Family Medicine; Internal Medicine Interventional Cardiology; ADMIT Family Medicine; ATTEND Family Medicine
DX: R07.89 Other chest pain (principal); Z96.652 Presence of left artificial knee joint; M19.90 Unspecified osteoarthritis, unspecified site; I10 Essential (primary) hypertension; F17.200 Nicotine dependence, unspecified, uncomplicated; E78.5 Hyperlipidemia, unspecified; K21.9 Gastro-esophageal reflux disease without esophagitis; R79.89 Other specified abnormal findings of blood chemistry